=== PATIENT | female | born 1975 | race Caucasian/White ===

== ENCOUNTER 2016-09-12 05:46 | Day surgery (SDC) | payer BC ==
[~2016-09-12] VITALS: Ht 165.1 cm; Wt 120.2 kg
[~2016-09-12 05:46] MED LIST: ADVIL,NUPRIN,M200 MG PO; BIO CLEANSE PO; PERCOCET 5/31 TABLET PO; PROBIOTIC1 EAC1 PO
[2016-09-12 07:03] VITALS: BP 143/90
[2016-09-12 12:30] VITALS: BP 138/82
[2016-09-12 16:45] VITALS: BP 124/75
[2016-09-12 19:32] VITALS: BP 134/79
[2016-09-12 23:26] VITALS: BP 130/58
[2016-09-13 03:34] VITALS: BP 126/60
[2016-09-13 06:42] VITALS: BP 122/58
[2016-09-13 06:51] LABS: EOSINOPHIL (%) 0.6 % (0-5); EOSINOPHIL COUNT 0.1 K/uL (0-0.3); HEMATOCRIT 35.9 % (36.0-46.0); IMMATURE GRANULOCYTE (%) 0.3 % (0.0-0.7); INSTRUMENT ABS NEUTROPHIL CT 9.5 K/uL; LYMPHOCYTE COUNT 1.5 K/uL (1.0-2.8); MCH 32.9 PG (29.0-34.0); MCV 96.8 FL (83-99); MEAN PLAT.VOLUME 9.2 uM^3 (9.5-12.4); MONOCYTE (%) 7.5 % (3-12); MONOCYTE COUNT 0.9 K/uL (0-0.8); NEUTROPHIL (%) 78.8 % (45-76); NEUTROPHIL COUNT 9.5 K/uL (1.8-6.4); PLATELET COUNT 225 K/uL (156-360); RBC DIS.WIDTH-CV 12.8 % (11.8-14.6); RBC DIS.WIDTH-SD 45.5 % (39-53); RED BLOOD COUNT 3.71 M/uL (3.80-5.20); WHITE BLOOD COUNT 12.1 K/uL (4.1-10.2)
[2016-09-13 07:34] LABS: ANION GAP 6 MEQ/L (2-14); CHLORIDE 105 MEQ/L (99-109); GFR ESTIMATE (CALCULATED) > 59 mL/min/; GLUCOSE 138 mg/dL (70-99); POTASSIUM 4.4 MEQ/L (3.7-5.4); SAMPLE HEMOLYSIS CHECK 0; SAMPLE ICTERIC CHECK 0; SAMPLE LIPEMIA CHECK 0; SODIUM 136 MEQ/L (136-147); UREA NITROGEN (BUN) 10 mg/dL (9-23)
== END 2016-09-13 10:35 | disposition home or self-care (01) ==
LOC: SDC 05:46 → 2EASTP 09:55 → 2SOUTH 09:55 → SDC 10:03 → ENRESERV 10:11 → SDC 11:11 → 2EASTP 12:33 → SDC 13:38 → 2EASTP 09-13 10:35
PROVIDERS: Obstetrics & Gynecology Gynecology
DX: N84.0 Polyp of corpus uteri (principal); N80.0 Endometriosis of uterus; N72 Inflammatory disease of cervix uteri; N94.6 Dysmenorrhea, unspecified; E66.01 Morbid (severe) obesity due to excess calories; Z68.41 Body mass index [BMI] 40.0-44.9, adult
CPT/HCPCS: 80048; 85025; 87086; 88307; G0378; J0360; J0690; J1100; J1644; J1885; J2001; J2250; J2405; J2795; J3010; J3475; J7120; Q0175